=== PATIENT | male | born 1970 | race Caucasian/White ===

== ENCOUNTER → 2022-04-05 14:50 | Outpatient (REF) | payer OTHER, SELFPAY | LOC: HO.SL 14:50 | PROVIDERS: PCP Internal Medicine; Visit Provider Nurse Practitioner Family | DX: E66.9 Obesity, unspecified (principal); R40.0 Somnolence; G47.33 Obstructive sleep apnea (adult) (pediatric); R06.83 Snoring | CPT/HCPCS: 95806 ==